=== PATIENT | male | born 1945 ===

== ENCOUNTER 2024-06-05 15:37 | Emergency (ER) | payer MEDICARE, OTHER, SELFPAY ==
[2024-06-05] VITALS (19 sets, daily range): BP systolic 112–170; BP diastolic 69–91; PULSE 88–114; RESP 14–22; TEMP 37.1–37.2; O2SAT 91–100
--- NOTE | 2024-06-05 15:50 | EKG_ITS ---
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
--- NOTE | 2024-06-05 16:51 | DI.RAD.S_ITS ---
PROCEDURE: XR CHEST 1V INDICATIONS: chest pain TECHNIQUE: One view of the chest was acquired. COMPARISON: [facility], CR, XR CHEST 2 VIEWS, 04/25/2024, 21:23. FINDINGS: Surgical changes and devices: A right-sided chest port is seen, with the tip seen overlying the mid aspect of the superior vena cava, 3-4 cm above the cavoatrial junction. A percutaneously placed aortic valve replacement can be seen. Cholecystectomy clips are seen. Lungs and pleura: An incomplete inspiratory result is noted, causing a crowded appearance to the lung markings. No focal infiltrates are seen. No pneumothorax or significant pleural effusions are seen. Mediastinum: Mediastinal contours appear normal. Heart size is normal. Bones and chest wall: No suspicious bony lesions. Age-appropriate bony degenerative changes are seen. Overlying soft tissues appear unremarkable. IMPRESSION: Low lung volumes, without an acute abnormality seen by plain film. Postoperative and degenerative changes are seen. Dictated by: David Carpio M.D. on 06/05/2024 at 16:44 Approved by: David Carpio M.D. on 06/05/2024 at 16:44
[2024-06-05 17:22] LABS: Add Manual Diff / Slide Review NO; Basophils Absolute Auto 0 /uL (0-100); Basophils Percent Auto 0.2 % (0-2); Eosinophils Absolute Auto 0 /uL (0-450); Eosinophils Percent Auto 0.3 % (2-4); Hemoglobin 9.7 g/dL (13.5-17.5); Lymphocytes Absolute Auto 200 /uL (1100-4500); Mean Corpuscular HGB Conc 33.4 % (30-36); Mean Corpuscular Hemoglobin 30.6 PG (26-34); Mean Corpuscular Volume 91.6 fL (80-100); Monocytes Absolute Auto 300 /uL (0-900); Monocytes Percent Auto 11.2 % (3-14); Neutrophils Absolute Auto 1900 /uL (1500-7000); Neutrophils Percent Auto 81.3 % (50-75); Platelet Count 83 X10^3/uL (150-400); Red Blood Cell Count 3.16 X10^6/uL (4.5-5.9); White Blood Cell Count 2.3 X10^3/uL (4.5-11.0)
[2024-06-05 17:26] LABS: Lactate (Lactic Acid) 1.8 mmol/L (0.7-2.1)
[2024-06-05 17:27] LABS: Alanine Aminotransferase 35 IU/L (<50); Albumin 3.1 g/dL (3.5-5.0); Alkaline Phosphatase 78 U/L (38-126); Aspartate Aminotransferase 95 IU/L (17-59); BUN Creatinine Ratio 57.5 (6-22); Bilirubin Total 0.5 mg/dL (0.2-1.3); Blood Urea Nitrogen 42 mg/dL (9-20); Calcium 8.4 mg/dL (8.4-10.2); Carbon Dioxide 32 mmol/L (22-32); Chloride 95 mmol/L (98-107); Creatine Kinase 462 U/L (55-170); Estimated Glomerular Filt Rate > 60 mL/min (>60); Globulin 3.2 g/dL (1.7-4.1); Glucose 100 mg/dL (80-110); HEMOLYSIS < 15 (0-50); Lipase 65 U/L (23-300); Magnesium 1.3 mg/dL (1.6-2.3); Potassium 3.9 mmol/L (3.4-5.1); Sodium 130 mmol/L (137-145); Total Protein 6.3 g/dL (6.3-8.2)
[2024-06-05 17:38] LABS: Troponin I 0.014 ng/mL (0.01-0.034)
[2024-06-05 17:46] LABS: Appearance Urine UA CLOUDY; Bilirubin Urine UA NEGATIVE (NEGATIVE); Color Urine UA YELLOW; Glucose Urine UA NEGATIVE (Negative); Ketones Urine UA NEGATIVE (NEGATIVE); Leukocyte Esterase Urine UA 3+ (NEGATIVE); Nitrite Urine UA NEGATIVE (Negative); Occult Blood Urine UA 2+ (Negative); Protein Urine UA 1+ (Negative); Specific Gravity Urine UA <=1.005 (1.000-1.035); pH Urine UA 6.5 (4.5-8.0)
[2024-06-05 17:49] LABS: Amorphous Sediment Urine 4+; Bacteria Urine Many (>30); RBC Urine 1-5/HPF (0-5/HPF); Squamous Epithelial Cell Urine 0-1 /HPF (0-5/HPF); Urine Volume 10mL (spun); WBC Urine >100/HPF (0-5/HPF)
[2024-06-05 17:50] LABS: Culture Indicated Urine Specimen Cultured
[2024-06-05 18:18] LABS: Influenza A - CEPHEID Flu A NEGATIVE (NEGATIVE); Influenza B - CEPHEID Flu B NEGATIVE (NEGATIVE); Respiratory Syncytial Virus Negative (Negative)
[2024-06-05 18:29] LABS: COVID-19 CEPHEID 4-PLEX PCR Negative (Negative)
--- NOTE | 2024-06-05 18:29 | PC.NURSE ---
[facility] #[phone]
--- NOTE | 2024-06-05 18:47 | ED_ITS ---
HPI - Weakness General Chief complaint: Weakness Stated complaint: Weak Time Seen by Provider: 06/05/24 16:50 Source: EMS Mode of arrival: EMS History of Present Illness HPI Narrative: 79-year-old male with history of metastatic throat cancer on unknown chemo regimen presents by EMS from home for 3 days of generalized weakness. Patient has 24hr caregivers present in the home. Patient reports feeling generally fatigued and weak. No other symptoms. Patient somewhat poor historian, only able to give vague descriptions of his care and medical history. He does have a PEG tube and grant catheter present. No previous records in our computer system. Related Data Home Medications Medication Instructions Recorded Confirmed amlodipine 2.5 mg tablet (Norvasc) ##0 05/19/17 aspirin 81 mg tablet,delayed ##0 05/19/17 release fenofibrate 40 mg tablet ##0 05/19/17 metformin 500 mg tablet,extended ##0 05/19/17 release 24 hr (Glucophage XR) Previous Rx's Medication Instructions Recorded hydrocodone-homatropine 5 mg-1.5 5 ml PO Q6H PRN cough #200 mL 06/05/24 mg/5 mL (5 mL) oral syrup lidocaine HCl 4 % (40 mg/mL) 1 applic mucous membrane TID PRN 06/05/24 mucosal solution pain #50 mL sulfamethoxazole 800 1 tab PO Q12H #20 tabs 06/05/24 mg-trimethoprim 160 mg tablet Allergies Allergy/AdvReac Type Severity Reaction Status Date / Time No Known Allergies Allergy Uncoded 10/22/17 12:48 Patient History Social History Smoking Status: Former smoker Smoking Status: Former smoker alcohol intake frequency: 0-2 drinks per day Substance Use Type: does not use Exam Initial Vital Signs Initial Vital Signs: Vital Signs Temperature 98.8 F 06/05/24 15:50 Pulse Rate 91 H 06/05/24 15:50 Respiratory Rate 14 06/05/24 15:50 Blood Pressure 157/74 H 06/05/24 15:50 Pulse Oximetry 97 06/05/24 15:50 Oxygen Delivery Method Room Air 06/05/24 15:50 Const: Awake, alert, debilitated, appears chronically unwell, frail Cardiac: regular rate, regular rhythm RESP: referred upper respiratory sounds, no rales or rhonchi GI: Soft, nontender, nondistended Skin: Pale, Warm, Dry, intact, no rashes Neuro: AO x2, CN II-XII grossly intact, moves all extremities Course Orders Ordered: Discontinued Medications Diphenhydramine HCl (Diphenhydramine 12.5 Mg/5 Ml Udc) 50 mg PO NOW ONE Stop: 06/05/24 19:43 Last Admin: 06/05/24 20:18 Dose: 50 mg Documented By: RADHA Heparin Sodium (Porcine) (Heparin 500 Unit/5 Ml Port Flush) 500 unit IV PRN PRN PRN Reason: Flush Last Admin: 06/06/24 10:48 Dose: 500 unit Documented By: MASOOD Ceftriaxone Sodium 2,000 mg/ (Sodium Chloride) 100 mls @ 200 mls/hr IV NOW ONE Stop: 06/05/24 18:51 Last Infusion: 06/05/24 19:44 Dose: Infused Documented By: Admin: 06/05/24 19:05 Dose: 200 mls/hr Documented By: RADHA Magnesium Sulfate (Magnesium Sulfate) 2 gm in 50 mls @ 25 mls/hr IV NOW ONE Stop: 06/05/24 20:49 Last Infusion: 06/05/24 20:59 Dose: Infused Documented By: RADHA Co-signed By: IDALIA Admin: 06/05/24 19:40 Dose: 25 mls/hr Documented By: RADHA Co-signed By: VINAYAK Lidocaine HCl (Lidocaine Viscous 2% 15 Ml Solution) 15 ml PO NOW ONE Stop: 06/05/24 19:43 Last Admin: 06/05/24 20:18 Dose: 15 ml Documented By: RADHA Vital Signs Vital signs: Vital Signs - 8 hr 06/06/24 03:30 06/06/24 03:30 06/06/24 04:00 Pulse Rate 92 H 101 H Respiratory Rate Blood Pressure 146/75 H Pulse Oximetry 93 100 06/06/24 04:00 06/06/24 04:30 06/06/24 04:31 Pulse Rate 95 H Respiratory Rate Blood Pressure 147/78 H 174/76 H Pulse Oximetry 100 06/06/24 04:31 06/06/24 05:00 06/06/24 05:00 Pulse Rate 96 H 93 H Respiratory Rate Blood Pressure 161/84 H Pulse Oximetry 100 99 06/06/24 05:30 06/06/24 05:30 06/06/24 06:00 Pulse Rate 93 H Respiratory Rate Blood Pressure 167/76 H 167/76 H Pulse Oximetry 100 06/06/24 06:00 06/06/24 06:30 06/06/24 06:30 Pulse Rate 109 H 92 H Respiratory Rate Blood Pressure 162/74 H Pulse Oximetry 100 100 06/06/24 07:00 06/06/24 07:00 06/06/24 07:30 Pulse Rate 95 H Respiratory Rate Blood Pressure 142/64 H Pulse Oximetry 100 98 06/06/24 07:30 06/06/24 08:00 06/06/24 08:00 Pulse Rate Respiratory Rate Blood Pressure 146/72 H 153/76 H Pulse Oximetry 99 06/06/24 08:30 06/06/24 08:30 06/06/24 09:00 Pulse Rate 100 H 98 H Respiratory Rate Blood Pressure 151/77 H Pulse Oximetry 99 99 06/06/24 09:01 06/06/24 09:01 06/06/24 09:30 Pulse Rate 100 H Respiratory Rate Blood Pressure 156/81 H 153/75 H Pulse Oximetry 99 06/06/24 09:30 06/06/24 09:30 06/06/24 10:00 Pulse Rate 99 H 113 H Respiratory Rate 18 20 Blood Pressure Pulse Oximetry 99 99 06/06/24 10:00 Pulse Rate Respiratory Rate Blood Pressure 130/73 Pulse Oximetry [facility] - Weakness Lab Data 06/05/24 16:49 06/05/24 16:49 Labs: Lab Results 06/05/24 06/05/24 06/05/24 Range/Units 16:49 16:59 17:18 WBC 2.3 L (4.5-11.0) X10^3/uL RBC 3.16 L (4.5-5.9) X10^6/uL Hgb 9.7 L (13.5-17.5) g/dL Hct 29.0 L (41-53) % MCV 91.6 (80-100) fL MCH 30.6 (26-34) PG MCHC 33.4 (30-36) % RDW 14.0 (11.6-14.8) % Plt Count 83 L (150-400) X10^3/uL Neut % (Auto) 81.3 H (50-75) % Lymph % (Auto) 7.0 L (25-40) % [place] % (Auto) 11.2 (3-14) % Eos % (Auto) 0.3 L (2-4) % Baso % (Auto) 0.2 (0-2) % Neut # (Auto) 1900 (8235-2926) /uL Lymph # (Auto) 200 L (2783-3760) /uL [place] # (Auto) 300 (0-900) /uL Eos # (Auto) 0 (0-450) /uL Baso # (Auto) 0 (0-100) /uL Sodium 130 L (137-145) mmol/L Potassium 3.9 (3.4-5.1) mmol/L Chloride 95 L (98-107) mmol/L Carbon Dioxide 32 (22-32) mmol/L BUN 42 H (9-20) mg/dL Creatinine 0.73 (0.66-1.25) mg/dL Estimated GFR > 60 (>60) mL/min BUN/Creatinine Ratio 57.5 H (6-22) Glucose 100 (80-110) mg/dL Lactate 1.8 (0.7-2.1) mmol/L Calcium 8.4 (8.4-10.2) mg/dL Magnesium 1.3 L (1.6-2.3) mg/dL Total Bilirubin 0.5 (0.2-1.3) mg/dL AST 95 H (17-59) IU/L ALT 35 (<50) IU/L Alkaline Phosphatase 78 (38-126) U/L Total Creatine Kinase 462 H (55-170) U/L Troponin I 0.014 (0.01-0.034) ng/mL Total Protein 6.3 (6.3-8.2) g/dL Albumin 3.1 L (3.5-5.0) g/dL Globulin 3.2 (1.7-4.1) g/dL Albumin/Globulin Ratio 1.0 (1.0-2.8) Lipase 65 (23-300) U/L Urine Color Yellow Urine Appearance Cloudy Urine pH 6.5 (4.5-8.0) Ur Specific Roy <=1.005 (1.000-1.035) Urine Protein 1+ H (Negative) Urine Glucose (UA) Negative (Negative) g/dL Urine Ketones Negative (NEGATIVE) Urine Occult Blood 2+ H (Negative) Urine Nitrate Negative (Negative) Urine Bilirubin Negative (NEGATIVE) Urine Urobilinogen 1.0 (0.2) E.U./dL Ur Leukocyte Esterase 3+ H (NEGATIVE) Urine RBC 1-5/hpf (0-5/HPF) Urine WBC >100/hpf H (0-5/HPF) Ur Squamous Epith Cells 0-1 /hpf (0-5/HPF) Amorphous Sediment 4+ Urine Bacteria Many (>30) H (None) Ur Culture Indicated? Specimen cultured Vol Urine Centrifuged 10ml (spun) SARS-CoV-2 (PCR) Negative (Negative) Influenza A (RT-PCR) Flu a negative (NEGATIVE) Influenza B (RT-PCR) Flu b negative (NEGATIVE) RSV (PCR) Negative (Negative) Imaging Data Chest x-ray: Radiologist Impression: PROCEDURE: XR CHEST 1V INDICATIONS: chest pain TECHNIQUE: One view of the chest was acquired. COMPARISON: [facility], , XR CHEST 2 VIEWS, 04/25/2024, 21:23. FINDINGS: Surgical changes and devices: A right-sided chest port is seen, with the tip seen overlying the mid aspect of the superior vena cava, 3-4 cm above the cavoatrial junction. A percutaneously placed aortic valve replacement can be seen. Cholecystectomy clips are seen. Lungs and pleura: An incomplete inspiratory result is noted, causing a crowded appearance to the lung markings. No focal infiltrates are seen. No pneumothorax or significant pleural effusions are seen. Mediastinum: Mediastinal contours appear normal. Heart size is normal. Bones and chest wall: No suspicious bony lesions. Age-appropriate bony degenerative changes are seen. Overlying soft tissues appear unremarkable. IMPRESSION: Low lung volumes, without an acute abnormality seen by plain film. Postoperative and degenerative changes are seen. Dictated by: David Carpio M.D. on 06/05/2024 at 16:44 Approved by: David Carpio M.D. on 06/05/2024 at 16:44 [facility] Narrative Medical decision making narrative: Chronically unwell appearing patient with known metastatic cancer presents for generalized weakness for 3 days. No focal deficit, patient states that he feels ?drained? and tired. Labs show hypomagnesemia, WBCs and bacteria present on urinalysis. Patient has 24/7 care at home. No evidence of sepsis - patient likely has exacerbation of known metastatic process. Patient upset saying well that's not a diagnosis and upset that no cause of his symptoms has been found. I attempted to explain that UTI and low magnesium could lead to symptoms, however patient increasingly upset. 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 Discharge Plan Departure Patient Disposition: Home Clinical Impression: Generalized weakness, Acute UTI (urinary tract infection) Instructions: How to Care for Your Grant Catheter -- Male Activity Restrictions/Additional Instructions: Your laboratory work today shows that you have low magnesium. Please follow up with your oncologist for this. The lidocaine and Hycodan may help with your throat pain and other symptoms. You also may have a UTI, antibiotics have been sent to the pharmacy. Prescriptions: New sulfamethoxazole-trimethoprim 800-160 mg tablet 1 tab PO Q12H Qty: 20 0RF lidocaine HCl 4 % (40 mg/mL) solution 1 applic mucous membrane TID PRN (Reason: pain) Qty: 50 0RF hydrocodone-homatropine 5-1.5 mg/5 mL (5 mL) syrup 5 ml PO Q6H PRN (Reason: cough) Qty: 200 0RF No Action amlodipine [Norvasc] 2.5 MG tablet Qty: 0 aspirin 81 MG tablet,delayed release (DR/EC) Qty: 0 metformin [Glucophage XR] 500 MG tablet extended release 24 hr Qty: 0 fenofibrate 40 MG tablet Qty: 0 Stand Alone Forms: Patient Portal/API/Survey
[2024-06-05] MEDS: cefTRIAXone 2,000 MG in SODIUM CHLORIDE 0.9% 100 ML 200 MG IV (19:05)
[2024-06-05] MEDS: MAGNESIUM SULFATE 2 GM/50 ML PIGGYBACK IV (19:40)
[2024-06-05] MEDS: diphenhydrAMINE 12.5 MG/5 ML UDC 50 MG PO (20:18)
[2024-06-05] MEDS: LIDOCAINE VISCOUS 2% 15 ML SOLUTION PO (20:18)
--- NOTE | 2024-06-05 22:57 | PC.NURSE ---
Addendum entered by Montserrat Galdamez CNA 06/06/24 07:18: ALMOND ROASTER note: Spoke to Clementine at [facility] at 0657. They still haven't found a caregiver for patient. I explained the challenges this posed for us and I had arranged transport twice already and had to cancel. They said they would continue to look. At 0659 spoke to family member, Megan, regarding patient needing to be transported home and having the caregiving agency cancel twice on us. Patient's family expressed that patient needs to be in an old person's home. He needs extra help. Don't you think? Can't you do that? Told her I can't, but the doctor has discharged him because he is well enough to go home with caregivers. I asked if they had any family or friends that could pick him up and help caregive. Megan expressed that he doesn't have anyone and is devin' a hermit. I asked if family could help. Megan said she lives in [facility] and can't. Gave Megan the number for the [facility]. Cancelled the ambulance orange picker and apologized for the late call. Alerted [facility] about the situation and Dr. Lopez. Addendum entered by Montserrat Galdamez CNA 06/06/24 05:13: DIANA note: Called the [facility] at 0256, confirmed there was a caregiver for patient for days/the morning. Kamini confirmed it would be Sharon, she would be arriving to patient's residence at 0800. I arranged transport for [facility] to get here at 0730. Explained this to patient. At 0504 Kamini from [facility] called to let me know that Sharon wasn't going to be there, and they didn't currently have a caregiver for patient. They had just gotten the call. I asked her to talk to the charge entry clerk to confirm this. Kamini and charge entry clerk spoke. We are currently going to keep the ambulance transport set up and try to call family to talk to them about the situation. Original Note: DIANA note: Spoke to Kamini at [facility], who provides patient caregiving services. At 2249 Kamini called and said the caregiver is running late and would be there at 2345. I thanked her for her help. At 2354 Kamini called and said the caregiver called off and would not be coming to take care of patient, they would continue to look for a caregiver. I called [facility] to let them know and put patient on will call to expedite the ambulance transport when caregiving becomes available. Thanked Joyce at [facility] for her help
--- NOTE | 2024-06-05 23:10 | PC.NURSE ---
phone numbers for next of kin Brother Keagan Dai & Sister in Law Megan Daybrandonboaz PH# [phone] PH# [phone]
[2024-06-06] VITALS (24 sets, daily range): BP systolic 130–174; BP diastolic 64–84; PULSE 92–113; RESP 12–21; O2SAT 93–100
--- NOTE | 2024-06-06 08:17 | PC.NURSE ---
At 0815 RN attempted to contact [facility] to see what the update is in regards to an available caregiver for pt. No answer, Voicemail was left.
--- NOTE | 2024-06-06 08:39 | PC.NURSE ---
Patient is unaware of what formula he takes for tube feeding but through [facility] records we were able to discover his provider is [facility]. This RN called [facility] asset protection assistant service and gave return call information. Awaiting return call from asset protection assistant pharmacist.
--- NOTE | 2024-06-06 08:56 | PC.NURSE ---
Spoke with Clementine [facility] #[phone], she has arranged for a home health caregiver to be at the home at 10am. Patient advised, physician and meteorologist in charge aware. Pt is ready for d/c and BLS transportation has being arranged.
--- NOTE | 2024-06-06 09:19 | PC.NURSE ---
PAU granger call from the [employer] [facility] [employer] stating a caregiver will be at the home at 1000. This SURFACE WATER TECHNICIAN setup transport. Spoke to Khushi with [facility]. BLS transport to arrive at 1050.
== END 2024-06-06 10:48 | disposition home or self-care (01) ==
PROVIDERS: Student in an Organized Health Care Education/Training Program; Emergency Provider Emergency Medicine
DX: R53.1 Weakness (principal); N39.0 Urinary tract infection, site not specified; R07.9 Chest pain, unspecified
CPT/HCPCS: 0241U; 36415; 71045; 80053; 81001; 82550; 83605; 83690; 83735; 84484; 85025; 87077; 87086; 87186; 93005; 96365; 96367; 99284; J0696; J1642; J3475